=== PATIENT | male | born 1935 | race Caucasian/White ===

== ENCOUNTER 2020-02-12 19:24 | Emergency (ER) | payer MEDICARE, BC ==
[~2020-02-12] VITALS: Ht 185.4 cm; Wt 106.6 kg
[~2020-02-12 19:24] MED LIST: AMIODARONE HCL200 MG PO; CIPRO500 MG PO; DIAZEPAM5 MG PO; ESIDRIX25 MG PO; LOSARTAN POTAS100 MG PO; METOPROLOL TART50 MG PO; XARELTO20 MG PO
--- NOTE | 2020-02-12 22:28 | Emergency Department Note ---
History of Present Illnes History of Present Illness Chief Complaint: sob History of Present Illness This is a 84 year old male. was doing well until 1.5 weeks ago then cough, congestion, f/c/loss of taste and smell. then sob. dx with covid 1.5 weeks ago. Historian: Patient Arrival Mode: Car History limited by: condition of the patient (normal) Tailer In Required: No Onset (how long ago): day(s) (2) Location: see above Quality: moderate Radiation: Reports non-radiation Severity: moderate Onset quality: gradual Duration (how long): day(s) (2) Timing of current episode: constant Progression: worsening Chronicity: new Context: Reports recent illness; Denies recent surgery, Denies recent immobilization, Denies recent travel, Denies trauma/injury, Denies new medications, Denies hx of DVT/PE, Denies non- compliance w/ medications Relieving factors: rest Exacerbating factors: movement Associated symptoms: Reports confusion (intermittently), Reports cough, Reports fever/chills, Reports shortness of breath Past Medical/Family History Physician Review I have reviewed the patient's past medical and family history. Any updates have been documented here. Past Medical History Recent Fever: Yes Clinical Suspicion of Infectio: No New/Unexplained Change in Ment: No Past Medical History: Hypertension, A-Fib Other Medical History: THYROID, TERMORS Social History Smoking Cessation: Never Smoker Counseling Performed: No Alcohol Use: None Any Illegal Drug Use: No Physically hurt or threatened: No Other Last Tetanus: OOD Any Pre-Existing Lines (PICC,: No Review of Systems Review of Systems Constitutional: Reports as per HPI EENTM: Reports no symptoms Cardiovascular: Reports no symptoms Respiratory: Reports as per HPI Gastrointestinal: Reports no symptoms Genitourinary: Reports no symptoms Musculoskeletal: Reports no symptoms Integumentary: Reports no symptoms Neurological: Reports no symptoms Psychological: Reports no symptoms Endocrine: Reports no symptoms Hematological/Lymphatic: Reports no symptoms Review of other systems: All other systems negative Physical Exam Related Data Allergies: Coded Allergies: No Known Allergies (Unverified , 01/21/16) Triage Vital Signs Vital Signs Date Time Temp Pulse Resp B/P (MAP) Pulse Ox O2 Delivery O2 Flow Rate FiO2 02/12/20 19:50 97.8 63 22 159/66 95 Vital signs reviewed: Yes Physical Exam CONSTITUTIONAL Constitutional: Present well-developed, Present well-nourished, Present distressed (mild respiratory) HENT HENT: Present normocephalic, Present atraumatic, Present mucosae dry, Present nose normal HENT L/R: Present left ext ear normal, Present right ext ear normal EYES Eyes: Reports PERRL, Reports conjunctivae normal NECK Neck: Present ROM normal, Present supple PULMONARY Pulmonary: Present respiratory distress (mild), Present rhonchi CARDIOVASCULAR Cardiovascular: Present regular rhythm, Present heart sounds normal, Present capillary refill normal, Present normal rate GASTROINTESTINAL Abdominal: Present soft, Present nontender, Present bowel sounds normal GENITOURINARY Genitourinary: Present exam deferred SKIN Skin: Present warm, Present dry MUSCULOSKELETAL Musculoskeletal: Present ROM normal NEUROLOGICAL Neurological: Present alert, Present oriented x 3, Present no gross motor or sensory deficits PSYCHOLOGICAL Psychological: Present mood/affect normal, Present judgement normal Results Laboratory Lab results reviewed: Yes Laboratory comments cbc ,cmp normal, bnp nl, cardiac enzymes normal except elevated myoglobin Imaging Imaging results reviewed: Yes Impressions cxr bilateral infiltrates Procedures 12 Lead ECG Interpretation ECG Interpretation : ECG: ECG 1 Tailer In: Interpreted by ED physician Date: Feb 12, 2020 Time: 19:47 Prior ECG tracings: reviewed Rhythm: bundle branch block (incomplete rbbb) Critical Care Time Comments spoke to dr coleman pineda- [facility] hospitalist at [place]- at 2232 hrs and accepts transfer of pt Assessment & Plan Medical Decision Making MDM pneumonia Assessment & Plan Final Impression: (1) Respiratory distress (2) Bilateral pneumonia (3) Dehydration Depart [facility]position: [facility] Last Vital Signs Date Time Temp Pulse Resp B/P (MAP) Pulse Ox O2 Delivery O2 Flow Rate FiO2 02/12/20 19:50 97.8 63 22 159/66 95 Home Meds Reported Medications Diazepam (DIAZEPAM) 5 Mg Tablet, 5 MG PO DAILY, #30 TAB 01/21/16 Rivaroxaban (XARELTO) 20 Mg Tablet, 20 MG PO HS 01/21/16 Amiodarone Hcl (AMIODARONE HCL) 200 Mg Tablet, 100 MG PO DAILY 01/21/16 Metoprolol Tartrate (METOPROLOL TARTRATE) 50 Mg Tablet, 50 MG PO BID, TAB 01/21/16 Hydrochlorothiazide* (ESIDRIX*) 25 Mg Tab, 12.5 MG PO DAILY, TAB 01/21/16 Losartan Potassium (LOSARTAN POTASSIUM) 100 Mg Tablet, 100 MG PO DAILY, TAB 01/21/16 Ciprofloxacin Hcl (CIPRO) 500 Mg Tablet, 500 MG PO Q12H, #30 TAB 01/21/16 Medications in the ED Sodium Chloride 10 ml PRN PRN INJ IV SITE FLUSH; Start 02/12/20 at 19:45; Stop 03/13/20 at 19:44 Ceftriaxone Sodium 50 ml @ 100 mls/hr ONCE ONCE IV ; Start 02/12/20 at 21:30; Stop 02/12/20 at 21:59; Status DC Azithromycin 250 ml @ 250 mls/hr NOW ONCE IV ; Start 02/12/20 at 21:30; Stop 02/12/20 at 22:29 Methylprednisolone Sodium Succinate 200 mg ONCE ONCE IV ; Start 02/12/20 at 21:30; Stop 02/12/20 at 21:31; Status DC HELGA MULLINS Feb 12, 2020 22:28
[2020-02-12] MEDS ORDERED: AZITHROMYCIN 500MG/NS 250 ML 250 ML ONE (22:30)
[2020-02-12] MEDS ORDERED: METHYLPREDNISOLONE SOD SUCC 125 MG/2ML VIAL ONE (22:30)
[2020-02-12] MEDS ORDERED: SODIUM CHLORIDE 0.9% 1000ML 1,000 ML ONE (22:30)
[2020-02-12] MEDS ORDERED: CEFTRIAXONE SOD 1 GM VIAL ONE (22:30)
[2020-02-12] MEDS: SODIUM CHLORIDE 0.9% 1000ML 1,000 ML IV STA (22:35)
[2020-02-12] MEDS: CEFTRIAXONE SOD 1 GM/NS 50 ML 50 ML IV ONE (22:35)
[2020-02-12] MEDS: SODIUM CHLORIDE FLUSH 10 ML SYR INJ PRN (22:35)
[2020-02-12] MEDS: AZITHROMYCIN 500MG/NS 250 ML 250 ML IV ONE (22:40)
[2020-02-12] MEDS: METHYLPREDNISOLONE SOD SUCC 125 MG/2ML VIAL IV ONE (22:42)
--- NOTE | 2020-02-12 22:56 | NUR ---
[facility] NOTIFIED OF TRANSFER TO [facility] ETA 30-45 MINUTES
--- NOTE | 2020-02-12 23:05 | Diagnostic Imaging Report ---
EXAMINATION: CXR 1 [facility] INDICATION: ^sob ^[id number] ^[id number] COMPARISON: CT dated 01/21/2016. FINDINGS: Unchanged cardiomegaly. Lobulated border of the AP window likely correlates with the prominent outpouching of the pulmonary outflow track seen on CT from 01/21/2016. Limited evaluation of the left base, but appearance may be secondary to cardiomegaly and prominent epicardial fat. Otherwise, the right lung is clear. No pneumothorax. IMPRESSION: Limited evaluation of the left lung base possibly secondary to cardiomegaly and a prominent epicardial fat. Underlying airspace disease at the left base difficult to exclude. Consider lateral view if clinically warranted. Otherwise, no acute process. Signed by: Fabricio Jasso MD on 02/12/2020 11:01 PM
[2020-02-12 23:42] VITALS: BP 129/74
== END 2020-02-13 00:13 | disposition other institution (70) ==
LOC: FSED 20:25
DX: R06.03 Acute respiratory distress (principal); J18.9 Pneumonia, unspecified organism; E86.0 Dehydration; I10 Essential (primary) hypertension; I48.91 Unspecified atrial fibrillation
CPT/HCPCS: 71045; 80053; 81003; 82553; 84484; 85025; 87040; 93005; 96374; 99284; J0456; J0696; J2930; J7030